=== PATIENT | female | born 1990 | race Caucasian/White ===

== ENCOUNTER 2018-06-13 18:32 | Emergency (ER) | payer BC, OTHER ==
--- NOTE | 2018-06-13 18:44 | PDOC ---
Rapid Medical Evaluation Chief Complaint: Injury Time Seen by Provider: 06/13/18 18:42 Medical Evaluation: 06/13/18 18:43 I performed a brief in person evaluation. CC: right ankle pain HPI: Pt is a 27 YO female with a hx of right ankle pain x 1 day. Pain 9/. PE: Skin: Clear Lungs: Clear Heart: RRR MS: Moves all extremities without difficulty Neuro: Alert Psych: Appropriate affect Right ankle xray ordered. Pt will go to [facility] for further evaluation. Discharge Disposition - Diagnosis Ankle sprain Qualifiers: Encounter type: initial encounter Involved ligament of ankle: unspecified ligament Laterality: right Qualified Code(s): S93.401A - Sprain of unspecified ligament of right ankle, initial encounter - Referrals - Patient Instructions - Post Discharge Activity
[2018-06-13 18:46] VITALS: BP 128/73; PULSE 86; TEMP 98.2; BMI 27.4
--- NOTE | 2018-06-13 20:11 | PDOC ---
History of Present Illness - General Chief Complaint: Injury Stated Complaint: ANKLE AND NECK INJURY Time Seen by Provider: 06/13/18 18:42 - History of Present Illness Initial Comments: 06/13/18 20:06 27-year-old female presents for evaluation of right ankle and left shoulder pain after a fall today touring work. She does have a pre-existing left shoulder injury. Past History - Past Medical History Allergies/Adverse Reactions: Allergies Allergy/AdvReac Type Severity Reaction Status Date / Time No Known Allergies Allergy Verified 06/13/18 18:46 Home Medications: Ambulatory Orders Cyclobenzaprine HCl [Flexeril 10 mg] 10 mg PO HS PRN #10 tablet 06/13/18 COPD: No Other medical history: gall stones - Immunization History Immunization Up to Date: No - Suicide/Smoking/Psychosocial Hx Smoking History: Never smoked Have you smoked in the past 12 months: No Information on smoking cessation initiated: No Hx Alcohol Use: No Drug/Substance Use Hx: No Review of Systems - Review of Systems Musculoskeletal: Yes: Joint Pain *Physical Exam - Vital Signs Last Vital Signs Temp Pulse Resp BP Pulse Ox 98.2 F 86 18 128/73 100 06/13/18 18:44 06/13/18 18:44 06/13/18 18:44 06/13/18 18:44 06/13/18 18:44 - Physical Exam Comments: 06/13/18 20:07 Left shoulder skin color and temperature are normal range of motion is full with pain at terminal abduction and external rotation. She has 5 out of 5 strength in bilateral upper extremities without gross sensorimotor deficits mildly positive Spurling maneuver on the left negative on the right. She has tenderness and spasm about left levator scapula. Right ankle skin color and temperature are normal. Range of motion is full and nonpainful. There is no tenderness about the knee proximal fibula or along its distal coarse. No tenderness about the medial or lateral malleolus base of the fifth metatarsal or navicular. Mild tenderness over the ATFL. No evidence of instability. She has no gross sensorimotor deficits. She is neurovascularly intact. Moderate Sedation - Procedure Monitoring Vital Signs: Procedure Monitoring Vital Signs Temperature 98.2 F 06/13/18 18:44 Pulse Rate 86 06/13/18 18:44 Respiratory Rate 18 06/13/18 18:44 Blood Pressure 128/73 06/13/18 18:44 O2 Sat by Pulse Oximetry (%) 100 06/13/18 18:44 Medical Decision Making - Medical Decision Making 06/13/18 20:10 States no chance of . I will treat her cervical radiculopathy with Flexeril. She is also on oral control. No steroids for her. She may take Tylenol for pain. 06/13/18 20:10 pt states no chance of flexeril given *DC/Admit/Observation/Transfer Diagnosis at time of Disposition: Cervical strain, Cervical radiculopathy Ankle sprain Qualifiers: Encounter type: initial encounter Involved ligament of ankle: unspecified ligament Laterality: right Qualified Code(s): S93.401A - Sprain of unspecified ligament of right ankle, initial encounter - Discharge Dispostion Condition at time of disposition: Stable - Referrals Referrals: Arturo Hahn MD [Staff Physician] - - Patient Instructions Printed Discharge Instructions: Ankle Sprain, DI for Ankle Sprain, DI for Cervical Radiculopathy - Post Discharge Activity
== END 2018-06-13 20:21 | disposition home or self-care (01) ==
LOC: JERFT 18:32
DX: S16.1XXA Strain of muscle, fascia and tendon at neck level, initial encounter (principal); M54.12 Radiculopathy, cervical region; S93.401A Sprain of unspecified ligament of right ankle, initial encounter; W18.39XA Other fall on same level, initial encounter; Y93.89 Activity, other specified; Y92.148 Other place in prison as the place of occurrence of the external cause; Y99.0 Civilian activity done for income or pay
CPT/HCPCS: 73610-TC-RT-FY; 99281-25

== ENCOUNTER 2018-09-06 08:28 | Emergency (ER) | payer BC, OTHER ==
[2018-09-06 08:41] VITALS: BP 116/68; PULSE 65; TEMP 98.2; BMI 27.4
[2018-09-06] MEDS ORDERED: IBUPROFEN 400 MG TABLET (FP) PO ONE ×2 (09:00→09:02)
--- NOTE | 2018-09-06 09:34 | PDOC ---
History of Present Illness - General Chief Complaint: Pain, Acute Stated Complaint: LT SHOULDER PAIN Time Seen by Provider: 09/06/18 08:51 History Source: Patient Exam Limitations: No Limitations Past History - Past Medical History Allergies/Adverse Reactions: Allergies Allergy/AdvReac Type Severity Reaction Status Date / Time No Known Allergies Allergy Verified 09/06/18 08:38 Home Medications: Ambulatory Orders NK [No Known Home Medication] 09/06/18 COPD: No - Immunization History Immunization Up to Date: Yes - Suicide/Smoking/Psychosocial Hx Smoking History: Never smoked Have you smoked in the past 12 months: No Hx Alcohol Use: No Drug/Substance Use Hx: No *Physical Exam - Vital Signs Last Vital Signs Temp Pulse Resp BP Pulse Ox 98.2 F 65 16 116/68 100 09/06/18 08:38 09/06/18 08:38 09/06/18 08:38 09/06/18 08:38 09/06/18 08:38 - Physical Exam General Appearance: No: Apparent Distress Neck: positive: Supple. negative: Rigid, Rigidity, Tender lateral, Tender midline Respiratory/Chest: positive: Lungs Clear, Normal Breath Sounds. negative: Respiratory Distress Cardiovascular: positive: Regular Rhythm, Regular Rate, S1, S2. negative: Murmur Musculoskeletal: positive: Other (Pain with L shoulder abduction, unable to abduct L shoulder to 90 degrees completetly, +Hawkin's test, +Neer's test, no swelling of joint, no deformity of LUE noted, LUE neurovascularly intact) Integumentary: positive: Normal Color Neurologic: positive: Alert, Normal Mood/Affect ED Treatment Course - RADIOLOGY Radiology Studies Ordered: Category Date Time Status SHOULDER-LEFT [RAD] Stat Radiology 09/06/18 09:00 Taken - Medications Given in the ED: ED Medications Discontinued Medications Generic Name Dose Route Start Last Admin Trade Name Freq PRN Reason Stop Dose Admin Ibuprofen 800 mg 09/06/18 09:00 09/06/18 09:04 Motrin - PO 09/06/18 09:01 800 mg ONCE ONE Administration Medical Decision Making - Medical Decision Making 27 y/o F with hx of prior L rotator cuff injury presents with L shoulder injury. Was doing barbell squats yesterday (25 lbs on each end) and while putting the barbell back on rack, missed, and barbell hit along L shoulder. Denies headache, neck pain, weakness of extremities. Is currently doing PT for her L shoulder injury, but states has not helped much. Took Tylenol for pain without much relief. Has not yet seen an orthopedic L shoulder xray unremarkable Given Motrin Will refer to ortho 09/06/18 09:33 *DC/Admit/Observation/Transfer Diagnosis at time of Disposition: Shoulder injury Qualifiers: Encounter type: initial encounter Laterality: left Qualified Code(s): S49.92XA - Unspecified injury of left shoulder and upper arm, initial encounter - Discharge Dispostion Disposition: HOME Condition at time of disposition: Stable Decision to Admit order: No - Referrals Referrals: Jose Rodriguez DO [Staff Physician] - 2 Days - Patient Instructions Printed Discharge Instructions: DI for Shoulder Pain, DI for Rotator Cuff Injury Additional Instructions: Thank you for choosing [facility]. It was a pleasure taking care of you. Your left shoulder xray was normal. You may take Motrin 600 mg every 6 hours by mouth as needed for mild to moderate pain. Take Motrin with food. You were referred to orthopedics - please call for further evaluation Return to the Emergency Department if your symptoms worsen or persist or other concerning symptoms. - Post Discharge Activity Forms/Work/School Notes: Back to Work
== END 2018-09-06 10:09 | disposition home or self-care (01) ==
LOC: JERFT 08:28
DX: S49.92XA Unspecified injury of left shoulder and upper arm, initial encounter (principal); W20.8XXA Other cause of strike by thrown, projected or falling object, initial encounter; Y93.B3 Activity, free weights; Y92.39 Other specified sports and athletic area as the place of occurrence of the external cause
CPT/HCPCS: 73030-TC-LT-FY; 99281-25

== ENCOUNTER 2018-10-07 22:24 | Inpatient (IN) | payer BC, OTHER ==
[2018-10-08] MEDS ORDERED: ONDANSETRON 4 MG/2 ML VIAL IVPUSH ONE (00:41)
[2018-10-08] MEDS ORDERED: ACETAMINOPHEN 1000 MG/100 ML VIAL (NON FORMULARY) IVPB ONE (00:41)
--- NOTE | 2018-10-08 00:41 | PDOC ---
History of Present Illness - General Chief Complaint: Pain Stated Complaint: SHORT OF BREATH Time Seen by Provider: 10/08/18 00:18 - History of Present Illness Initial Comments: The pt is a 27F w/ a history of nephrolithiasis and cholelithiasis who presents for 1 day of abdominal pain. The pain is RUQ, cramping, radiates around towards her back, constant, worse post-prandially, and is associated with nausea, sore throat, and a frontal b/l WELLS. The pt has not tried anything for pain. She denies fevers/chills, SOB, diarrhea, dysuria, or change in sensation. She last felt this type of pain in 04/2018 and at that time was told she had gallstones. PCP: [facility] PSH: C/S Meds: OCP Allergies: NKDA 10/08/18 00:45 Past History - Past Medical History Allergies/Adverse Reactions: Allergies Allergy/AdvReac Type Severity Reaction Status Date / Time No Known Allergies Allergy Verified 09/06/18 08:38 Home Medications: Ambulatory Orders NK [No Known Home Medication] 09/06/18 COPD: No Disorders: Yes (renal colic) - Immunization History Immunization Up to Date: Yes - Suicide/Smoking/Psychosocial Hx Smoking History: Never smoked Have you smoked in the past 12 months: No Hx Alcohol Use: No Drug/Substance Use Hx: No Review of Systems - Review of Systems Able to Perform ROS?: Yes Comments:: GENERAL/CONSTITUTIONAL: No fever or chills. No weakness HEAD, EYES, EARS, NOSE AND THROAT: No change in vision. No ear pain or discharge. No sore throat CARDIOVASCULAR: No chest pain or shortness of breath RESPIRATORY: Denies cough, hemoptysis GASTROINTESTINAL: No diarrhea or constipation GENITOURINARY: No dysuria, frequency, or change in urination MUSCULOSKELETAL: No joint or muscle swelling or pain. No neck or back pain SKIN: No rash NEUROLOGIC: No headache, vertigo, loss of consciousness, or change in strength/ sensation ENDOCRINE: No increased thirst. No abnormal weight change HEMATOLOGIC/LYMPHATIC: No anemia, easy bleeding, or history of blood clots ALLERGIC/IMMUNOLOGIC: No hives or skin allergy 10/08/18 00:48 Is the patient limited Hungarian proficient: No *Physical Exam - Vital Signs Last Vital Signs Temp Pulse Resp BP Pulse Ox 98.3 F 81 20 114/72 100 10/07/18 22:30 10/07/18 22:30 10/07/18 22:30 10/07/18 22:30 10/07/18 22:30 - Physical Exam Comments: GENERAL: Awake, alert, and oriented to person/place/time, in no acute distress HEAD: No signs of trauma, normocephalic, atraumatic EYES: PERRLA, EOMI, sclera anicteric, conjunctiva clear ENT: Hearing grossly normal, nares patent, oropharynx clear without exudates. Moist mucosa LUNGS: No distress, speaks full sentences, clear to auscultation bilaterally HEART: Regular rate and rhythm, normal S1 and S2, no murmurs appreciated, peripheral pulses normal and equal bilaterally ABDOMEN: EXTREMITIES: Normal inspection, Normal range of motion, no edema. No clubbing or cyanosis NEUROLOGICAL: Cranial nerves II through XII grossly intact. Normal speech, no focal sensorimotor deficits SKIN: Warm, Dry 10/08/18 01:43 ED Treatment Course - LABORATORY CBC & Chemistry Diagram: 10/08/18 00:56 10/08/18 01:01 Medical Decision Making - Medical Decision Making The pt is a 27F w/ a history of nephrolithiasis and cholelithiasis who presents for evaluation of RUQ abdominal pain w/ associated nausea and headache. Ddx: symptomatic cholelithiasis v cholecystitis, nephrolithiasis, less likely pancreatitis, PUD ED Course Labs sent RUQ U/S IVF, Ofirmev, Zofran No leukocytosis No anemia No LAINA LFTs wnl Serum preg neg Tbili wnl Pending U/S Dispo pending U/S results and re-eval of pain 10/08/18 01:43 *DC/Admit/Observation/Transfer Diagnosis at time of Disposition: Abdominal pain Qualifiers: Abdominal location: right upper quadrant Qualified Code(s): R10.11 - Right upper quadrant pain Cholelithiasis Qualifiers: Cholelithiasis location: gallbladder Cholecystitis presence: without cholecystitis Biliary obstruction: with biliary obstruction Qualified Code(s): K80.21 - Calculus of gallbladder without cholecystitis with obstruction - Referrals - Patient Instructions Printed Discharge Instructions: DI for Gallstones - Post Discharge Activity
[2018-10-08 01:08] LABS: BASO % 0.5 % (0-2.0); EOS % 1.1 % (0-4.5); HEMATOCRIT 40.2 % (32.4-45.2); HEMOGLOBIN 12.9 GM/dL (10.7-15.3); MCH 28.2 pg (25.7-33.7); MCHC 32.2 g/dl (32.0-36.0); MEAN CELL VOLUME 87.5 fl (80-96); MONO % 5.9 % (3.8-10.2); NEUT % 78.5 % (42.8-82.8); PLATELET COUNT 192 K/MM3 (134-434); RBC 4.59 M/mm3 (3.60-5.2); RDW 13.1 % (11.6-15.6); WHITE BLOOD COUNT 10.7 K/mm3 (4.0-10.0)
[2018-10-08] MEDS ORDERED: ACETAMINOPHEN INJECTION 100 ML IVPB ONE (01:08)
[2018-10-08] MEDS ORDERED: ONDANSETRON 4 MG/2 ML VIAL ONE (01:08)
--- NOTE | 2018-10-08 01:11 | PDOC ---
Documentation entered by Shari Pennington SCRIBE, acting as scribe for Patricia Benítez MD. Patricia Benítez MD: This documentation has been prepared by the [facility], SCRIBE, under my direction and personally reviewed by me in its entirety. I confirm that the documentation accurately reflects all work, treatment, procedures, and medical decision making performed by me. Attending Attestation - Resident Resident Name: Mannie Eastman - ED Attending Attestation I have performed the following: I have examined & evaluated the patient, The case was reviewed & discussed with the resident, I agree w/resident's findings & plan, Exceptions are as noted - HPI HPI: 10/08/18 01:02 The patient is a 27-year-old female with a past medical history significant for nephrolithiasis and cholelithiasis presents to the emergency department with abdominal pain. The patient presents with a 1-day history of constant RUQ pain, thats crampy in quality, that radiates to the back, with an associated symptom of nausea, denies vomiting. has seen a surgeon in the past for cholecystectomy but was unable to schedule. 10/08/18 01:08 - Physicial Exam PE: 10/08/18 01:09 awake alert NAD lungs ctab no wheeze no crackles. heart rrr no mrg abd soft nt nd. ext wwp no edema. no calf tenderness. - Medical Decision Making 10/08/18 01:10 27 yo h/o gallstones, here wiht ruq pain. plan ruq us labs differential pancreatitis cholecystitis,uti renal colic, plan pain control ivf. focused ED us RUQ, indication ruq pain. gallbladder scanned in two planes. gallstones noted, two large 1 cm stones. cbd normal 3 mm anterior gallbladder wall normal <3mm. impression: cholelithiasis. 10/08/18 01:50 pt lfts normal. wbc mild elevation. overall pt feeling improved. sxs cholelithiasis. willr require surgery eval/ referral.
[2018-10-08 01:35] LABS: ALBUMIN 3.5 g/dl (3.4-5.0); ALK PHOS 54 U/L (45-117); ANION GAP 4 MMOL/L (8-16); BILIRUBIN,TOTAL 0.5 mg/dL (0.2-1); BLOOD UREA NITROGEN 12 mg/dL (7-18); CALCIUM 8.7 mg/dL (8.5-10.1); CHLORIDE 108 mmol/L (98-107); CO2 27 mmol/L (21-32); CREATININE 0.9 mg/dL (0.55-1.3); GLUCOSE,RANDOM 94 mg/dL (74-106); POTASSIUM 4.7 mmol/L (3.5-5.1); SGOT/AST 12 U/L (15-37); SGPT/ALT 23 U/L (13-61); SODIUM 139 mmol/L (136-145); TOT PROT 7.2 g/dl (6.4-8.2)
[2018-10-08] MEDS ORDERED: SODIUM CHLORIDE 0.9% 500 ML INFUS.BAG IV ONE (01:39)
--- NOTE | 2018-10-08 02:25 | PDOC ---
*Physical Exam - Vital Signs Last Vital Signs Temp Pulse Resp BP Pulse Ox 98.3 F 81 20 114/72 100 10/07/18 22:30 10/07/18 22:30 10/07/18 22:30 10/07/18 22:30 10/07/18 22:30 - Physical Exam General Appearance: Yes: Nourished, Appropriately Dressed Neck: positive: Trachea midline, Supple Gastrointestinal/Abdominal: positive: Other (RUQ guarding; (+) Alamo's sign) ED Treatment Course - LABORATORY CBC & Chemistry Diagram: 10/08/18 00:56 10/08/18 01:01 - ADDITIONAL ORDERS Additional order review: Laboratory Results 10/08/18 10/08/18 01:01 01:01 Sodium 139 Potassium 4.7 Chloride 108 H Carbon Dioxide 27 Anion Gap 4 L BUN 12 Creatinine 0.9 Creat Clearance w eGFR 75.11 Random Glucose 94 Calcium 8.7 Total Bilirubin 0.5 AST 12 L ALT 23 Alkaline Phosphatase 54 Total Protein 7.2 Albumin 3.5 Serum , Qual Negative 10/08/18 00:56 RBC 4.59 MCV 87.5 MCHC 32.2 RDW 13.1 MPV 10.0 Neutrophils % 78.5 Lymphocytes % 14.0 Monocytes % 5.9 Eosinophils % 1.1 Basophils % 0.5 Medical Decision Making - Medical Decision Making 10/08/18 02:24 Patient signed out by Dr. Esquivel (Resident) under the care of Dr. Benítez ( Attending) @ [id number] 27 year old female with cramping RUQ abdominal pain. VSS Bedside U/S shows cholelithiasis. H/o symptomatic cholelithiasis with surgical evaluation but no scheduled cholecystectomy. LFT's normal. S/p Tylenol, Zofran, IV hydration. Patient @ CT 10/08/18 02:30 Patient reasessed @ bedside - continues to have RLQ TTP 10/08/18 05:41 CTAP negative for cholecystitis however patient continues to have mild guarding on PE. Will admit for symptomatic cholelithiasis with surgical evaluation in the a.m. Patient counseled on plan of care. Amenable to admission Morphine for pain control 10/08/18 06:06 Case d/w Dr. Glass (Hospitalist) will admit patient for surgical consult. *DC/Admit/Observation/Transfer Diagnosis at time of Disposition: Abdominal pain Qualifiers: Abdominal location: right upper quadrant Qualified Code(s): R10.11 - Right upper quadrant pain Cholelithiasis Qualifiers: Cholelithiasis location: gallbladder Cholecystitis presence: without cholecystitis Biliary obstruction: with biliary obstruction Qualified Code(s): K80.21 - Calculus of gallbladder without cholecystitis with obstruction - Referrals - Patient Instructions Printed Discharge Instructions: DI for Gallstones - Post Discharge Activity
[2018-10-08 03:15] LABS: INR 0.96 (0.83-1.09); PROTHROMBIN TIME (PATIENT) 11.3 SEC (9.7-13.0)
[2018-10-08 03:17] LABS: ACTIVATED PTT 28.4 SECONDS (25.2-36.5)
[2018-10-08] MEDS ORDERED: morphine CARPU-JECT 2 MG/1 ML DISP.SYRIN IVPUSH ONE (04:16)
[2018-10-08] MEDS ORDERED: morphine SULFATE 4 MG/ML VIAL ONE (05:10)
[2018-10-08] MEDS ORDERED: KETOROLAC TROMETHAMINE 15 MG/ML VIAL IVPUSH PRN (06:33)
[2018-10-08] MEDS ORDERED: morphine SULFATE 4 MG/ML VIAL IVPUSH PRN (06:33)
[2018-10-08] MEDS ORDERED: ONDANSETRON 4 MG/2 ML VIAL IVPUSH PRN (06:33)
[2018-10-08] MEDS ORDERED: ACETAMINOPHEN 325 MG TABLET (FP) PO PRN (06:33)
--- NOTE | 2018-10-08 06:38 | HP ---
CHIEF COMPLAINT: PCP: HISTORY OF PRESENT ILLNESS: Seen and examined; patient is a 27 y/o female with a PMH of OCP use presenting to the ER with a CC of crampy moderate to severe abdominal pain; she has acute abdominal pain secondary to gallstones visualized on US. She has known gallstones with biliary colic since at least april of last year; she was seen at [facility] and told she needed GB out but was lost to followup. Pain is worse with food and better with rest but never completely relieved. She is afebrile and hemodynamically stable. She has some nausea but has not yet vomited. Denies diarrhea. Prelim US shows 5mm robb with no pericholecystic fluid and normal common bile duct. Discussed the case with Dr. Robles who will see the patient. Will hold off on HIDA until sgy assesses and give fluids, working to control her pain and nausea. As no real white count, persay, and no fever will hold off on abx for now. PAST MEDICAL HISTORY: Reviewed PAST SURGICAL HISTORY: No recent procedures noted Social History: Social drinker without s/s abuse, no tobacco/ilicits. Employed as housing officer Family History: Asked and noncontributory Allergies No Known Allergies Allergy (Verified 09/06/18 08:38) HOME MEDICATIONS: Home Medications Medication Instructions Recorded Norethindrone AC-Eth Estradiol 1 each PO DAILY 10/08/18 [] REVIEW OF SYSTEMS 10 sys ROS done and negative aside from hPI PHYSICAL EXAMINATION Vital Signs - 24 hr 10/07/18 22:30 Temperature 98.3 F Pulse Rate 81 Respiratory 20 Rate Blood Pressure 114/72 O2 Sat by Pulse 100 Oximetry (%) GENERAL: Awake, alert, and fully oriented, in no acute distress. HEAD: Normal with no signs of trauma. EYES: Pupils equal, round and reactive to light, extraocular movements intact EARS, NOSE, THROAT: Ears normal, nares patent, oropharynx clear without exudates. Moist mucous membranes. NECK: Normal range of motion, supple without lymphadenopathy, JVD, or masses. LUNGS: Breath sounds equal, clear to auscultation bilaterally. No wheezes, and no crackles. No accessory muscle use. HEART: Regular rate and rhythm, normal S1 and S2 without murmur, rub or gallop. ABDOMEN: Soft, mildly tender with equivicol miller's, not distended, normoactive bowel sounds MUSCULOSKELETAL: Normal range of motion at all joints. No bony deformities or tenderness. No CVA tenderness. NEUROLOGICAL: Cranial nerves II-XII intact. Normal speech. Normal gait. PSYCHIATRIC: Cooperative. Good eye contact. Appropriate mood and affect. SKIN: Warm, dry, normal turgor, no rashes or lesions noted, normal capillary refill. Laboratory Results - last 24 hr 10/08/18 10/08/18 10/08/18 00:56 01:01 01:01 WBC 10.7 H RBC 4.59 Hgb 12.9 Hct 40.2 MCV 87.5 MCH 28.2 MCHC 32.2 RDW 13.1 Plt Count 192 MPV 10.0 Absolute Neuts (auto) 8.4 H Neutrophils % 78.5 Lymphocytes % 14.0 Monocytes % 5.9 Eosinophils % 1.1 Basophils % 0.5 Nucleated RBC % 0 PT with INR 11.30 INR 0.96 PTT (Actin FS) 28.4 Sodium Potassium Chloride Carbon Dioxide Anion Gap BUN Creatinine Creat Clearance w eGFR Random Glucose Calcium Total Bilirubin AST ALT Alkaline Phosphatase Total Protein Albumin Serum , Qual Negative Blood Type Antibody Screen 10/08/18 10/08/18 01:01 01:01 WBC RBC Hgb Hct MCV MCH MCHC RDW Plt Count MPV Absolute Neuts (auto) Neutrophils % Lymphocytes % Monocytes % Eosinophils % Basophils % Nucleated RBC % PT with INR INR PTT (Actin FS) Sodium 139 Potassium 4.7 Chloride 108 H Carbon Dioxide 27 Anion Gap 4 L BUN 12 Creatinine 0.9 Creat Clearance w eGFR 75.11 Random Glucose 94 Calcium 8.7 Total Bilirubin 0.5 AST 12 L ALT 23 Alkaline Phosphatase 54 Total Protein 7.2 Albumin 3.5 Serum , Qual Blood Type A NEGATIVE Antibody Screen Negative ASSESSMENT/PLAN: Patient with hx biliary colic diagnosed at [facility] presents with typical biliary-type pain and gallstones with a 5mm GB wall on prelim US; case was discussed with Dr. Robles. 1) Biliary Colic, symptomatic cholelithiasis -She has a history of gallstones diagnosed at [facility] with similar pain; is amiable to discuss with sgy. -Followup surgical recommendations; appreciate expert opinion. -LR@100; PRN APAP/Toradol and can use MSO4 for breakthrough pain -Considering HIDA; if she does go for it will hold the morphine. Will need to discuss with sgy -Nausea control; followup QTc -No fever, white count, no pericholecystic fluid; in light of this will hold off on abx but will cover if clinically presents. -Type and screen, coags ordered. 2) Overweight (BMI 27) -Back Sizer prior to DC DVT px: Early ambulation; SCDs postop Full Code
[2018-10-08] MEDS ORDERED: LACTATED RINGERS SOLUTION 1,000 ML/1,000 ML INFUS.BAG IV SCH (06:45)
[2018-10-08 08:01] LABS: BASO % 0.7 % (0-2.0); EOS % 1.2 % (0-4.5); HEMATOCRIT 36.1 % (32.4-45.2); HEMOGLOBIN 11.8 GM/dL (10.7-15.3); LYMPH % 25.7 % (8-40); MCH 28.7 pg (25.7-33.7); MCHC 32.8 g/dl (32.0-36.0); MEAN CELL VOLUME 87.4 fl (80-96); MEAN PLT VOLUME 10.2 fl (7.5-11.1); MONO % 6.2 % (3.8-10.2); NEUT % 66.2 % (42.8-82.8); PLATELET COUNT 180 K/MM3 (134-434); RBC 4.12 M/mm3 (3.60-5.2); RDW 13.2 % (11.6-15.6); WHITE BLOOD COUNT 9.1 K/mm3 (4.0-10.0)
[2018-10-08 08:31] LABS: ANION GAP 5 MMOL/L (8-16); BLOOD UREA NITROGEN 9 mg/dL (7-18); CALCIUM 7.5 mg/dL (8.5-10.1); CHLORIDE 112 mmol/L (98-107); CO2 26 mmol/L (21-32); CREATININE 0.8 mg/dL (0.55-1.3); GLUCOSE,RANDOM 83 mg/dL (74-106); POTASSIUM 4.6 mmol/L (3.5-5.1); SODIUM 143 mmol/L (136-145)
[2018-10-08 09:34] LABS: URINE APPEARANCE CLEAR; URINE BILIRUBIN NEGATIVE (NEGATIVE); URINE COLOR YELLOW; URINE GLUCOSE (UA) NEGATIVE (NEGATIVE); URINE KETONE NEGATIVE (NEGATIVE); URINE LEUK ESTERASE NEGATIVE (NEGATIVE); URINE NITRITE NEGATIVE (NEGATIVE); URINE PROTEIN NEGATIVE (NEGATIVE); URINE UROBILINOGEN 0.2 mg/dL (0.2-1.0)
[2018-10-08] MEDS ORDERED: DEXTROSE 5%-NORMAL SALINE 1,000 ML IV SCH (10:00)
--- NOTE | 2018-10-08 10:04 | PN ---
Progress Note (short form) - Note Progress Note: Subjective: no fever or chills. Abd pain in RUQ is still there since 8 pm. no diarrhea. has nausea, but no vomiting Objective: Vital Signs: Last Vital Signs Temp Pulse Resp BP Pulse Ox 98.4 F 61 16 121/65 99 10/08/18 09:00 10/08/18 09:00 10/08/18 09:00 10/08/18 09:00 10/08/18 09:00 Laboratory Results - last 24 hr 10/08/18 10/08/18 10/08/18 00:56 01:01 01:01 WBC 10.7 H RBC 4.59 Hgb 12.9 Hct 40.2 MCV 87.5 MCH 28.2 MCHC 32.2 RDW 13.1 Plt Count 192 MPV 10.0 Absolute Neuts (auto) 8.4 H Neutrophils % 78.5 Lymphocytes % 14.0 Monocytes % 5.9 Eosinophils % 1.1 Basophils % 0.5 Nucleated RBC % 0 PT with INR 11.30 INR 0.96 PTT (Actin FS) 28.4 Sodium Potassium Chloride Carbon Dioxide Anion Gap BUN Creatinine Creat Clearance w eGFR Random Glucose Calcium Total Bilirubin AST ALT Alkaline Phosphatase Total Protein Albumin Lipase Serum , Qual Negative Urine Color Urine Appearance Urine pH Ur Specific [place] Urine Protein Urine Glucose (UA) Urine Ketones Urine Blood Urine Nitrite Urine Bilirubin Urine Urobilinogen Ur Leukocyte Esterase Blood Type Antibody Screen 10/08/18 10/08/18 10/08/18 01:01 01:01 06:08 WBC RBC Hgb Hct MCV MCH MCHC RDW Plt Count MPV Absolute Neuts (auto) Neutrophils % Lymphocytes % Monocytes % Eosinophils % Basophils % Nucleated RBC % PT with INR INR PTT (Actin FS) Sodium 139 Potassium 4.7 Chloride 108 H Carbon Dioxide 27 Anion Gap 4 L BUN 12 Creatinine 0.9 Creat Clearance w eGFR 75.11 Random Glucose 94 Calcium 8.7 Total Bilirubin 0.5 AST 12 L ALT 23 Alkaline Phosphatase 54 Total Protein 7.2 Albumin 3.5 Lipase 116 Serum , Qual Urine Color Urine Appearance Urine pH Ur Specific [place] Urine Protein Urine Glucose (UA) Urine Ketones Urine Blood Urine Nitrite Urine Bilirubin Urine Urobilinogen Ur Leukocyte Esterase Blood Type A NEGATIVE Antibody Screen Negative 10/08/18 10/08/18 10/08/18 07:39 07:39 09:00 WBC 9.1 RBC 4.12 Hgb 11.8 Hct 36.1 MCV 87.4 MCH 28.7 MCHC 32.8 RDW 13.2 Plt Count 180 MPV 10.2 Absolute Neuts (auto) 6.0 Neutrophils % 66.2 Lymphocytes % 25.7 D Monocytes % 6.2 Eosinophils % 1.2 Basophils % 0.7 Nucleated RBC % 0 PT with INR INR PTT (Actin FS) Sodium 143 Potassium 4.6 Chloride 112 H Carbon Dioxide 26 Anion Gap 5 L BUN 9 Creatinine 0.8 Creat Clearance w eGFR 86.04 Random Glucose 83 Calcium 7.5 L Total Bilirubin AST ALT Alkaline Phosphatase Total Protein Albumin Lipase Serum , Qual Urine Color Yellow Urine Appearance Clear Urine pH 7.0 Ur Specific [place] 1.013 Urine Protein Negative Urine Glucose (UA) Negative Urine Ketones Negative Urine Blood Negative Urine Nitrite Negative Urine Bilirubin Negative Urine Urobilinogen 0.2 Ur Leukocyte Esterase Negative Blood Type Antibody Screen Physical Exam: NAD , AAOx3. pleasant CV: RRR, 3/6 SM mainly heard at apex. Lungs: CTAB Abd: soft, ND, TTP in RUQ, with + Alamo's and rebound tenderness Ext : no edema or erythema Imaging: US reviewed. Assessment/Plan: 27 y/o lady with h/o preeclampsia, heart murmur, and known gall stones and biliary colic who presented with RUQ abd pain. 1- RUQ pain. biliarry colic and possible acute cholecystitis ( persistent pain, + Alamo's, thickening of gall bladder wall on some images) - start CTX and flagyl - change IVF to NS+ D5 - NPO - pain control - Surgery c/s pending. - will get EKG or QTC since on zofran 2- heart murmur : known . had an echo before ,per report neg for valvular pathology 3- hold off chemical DVT px now pending possible sx . SCDS Visit type - Emergency Visit Emergency Visit: Yes ED Registration Date: 10/08/18 Care time: The patient presented to the Emergency Department on the above date and was hospitalized for further evaluation of their emergent condition. - New Patient This patient is new to me today: Yes Date on this admission: 10/08/18 - Critical Care Critical Care patient: No
[2018-10-08 10:07] LABS: ALK PHOS 47 U/L (45-117); BILIRUBIN,TOTAL 0.5 mg/dL (0.2-1); SGOT/AST 12 U/L (15-37); SGPT/ALT 20 U/L (13-61); TOT PROT 6.2 g/dl (6.4-8.2)
[2018-10-08] MEDS ORDERED: cefTRIAXone SODIUM 1 GM VIAL ONE (11:08)
[2018-10-08] MEDS ORDERED: DEXTROSE 5%-WATER - 50 ML IVPB ONE (11:08)
[2018-10-08] MEDS: CEFTRIAXONE 1 GM in DEXTROSE 5%-WATER - 50 ML IVPB SCH (11:18)
[2018-10-08 11:52] VITALS: BMI 27.8
--- NOTE | 2018-10-08 12:41 | CONSULT ---
Consult Consult Specialty:: General Surgery Referred by:: Nithin Glass Reason for Consultation:: symptomatic cholelithiasis - History of Present Illness Chief Complaint: RUQ pain, nausea, WELLS History of Present Illness: 27yo F with h/o nephrolithiasis, innocent heart murmur, preeclampsia with first , c/section x2, cystoscopy with lithotripsy and cholelithiasis diagnosed 04/23, presented to ER last night with increasingly recurrent and worsening episodes of biliary colic. She was referred by [facility] in April to a surgeon, with whom she has been trying to arrange a date for lap oliverio with, when she can take vacation from work, but has not been able to do so yet. She has been following a low-fat diet, but having intermittent pain on a more frequent basis, and has decreased her po intake over the last few weeks because of the pain. She has some nausea but no vomiting with the pain, no fever or chills, and reports mild chronic constipation. Last BM was small pieces , hard to get out, day before yesterday. Yesterday evening, she was woken up by the pain just before going to work, and it was bad enough to call in and come to ER instead. She has also had a headache since yesterday, and for the last 2- 3 days a sore throat and stuffy nose, which she thinks may be related to developing environmental allergies. In the ER, her wbc was 10.7, LFTs and lipase normal, and US showed multiple gallstones measuring up to 1.6cm, with possible areas of wall thickening and no pericholecystic fluid, normal cbd. Surgery was asked to assess. She is seen and examined in bed. She has been NPO on IVF, and Ceftriaxone and Flagyl were started this morning. She reports still having RUQ pain, but is very hungry. She gave the above history. Only home med is OCP, and she is due for menses within days. She does not smoke cigarettes but uses a vaporizer daily , used to smoke hookah. - History Source History Provided By: Patient Limitations to Obtaining History: No Limitations - Past Medical History Cardio/Vascular: Yes: Murmur Hepatobiliary: Yes: Cholelithiasis Renal/: Yes: Renal Calculi ...LMP: 09/09/18 ...: No ...Para: 2 - Past Surgical History Past Surgical History: Yes: (x2) Additional Surgical History: cystoscopy with lithotripsy for R-sided stone - Alcohol/Substance Use Hx Alcohol Use: Yes (occasional) History of Substance Use: reports: None - Smoking History Smoking history: Current every day smoker (hookah/vape only - no cigarettes) Have you smoked in the past 12 months: Yes Aproximately how many cigarettes per day: 0 - Social History Usual Living Arrangement: Alone ADL: Independent Occupation: human resources officer Home Medications - Allergies Allergies/Adverse Reactions: Allergies Allergy/AdvReac Type Severity Reaction Status Date / Time No Known Allergies Allergy Verified 09/06/18 08:38 - Home Medications Home Medications: Ambulatory Orders Norethindrone AC-Eth Estradiol [] 1 each PO DAILY 10/08/18 Family Disease History - Family Disease History Family Disease History: Diabetes: Father (type 2), Other: Mother (hypothyroid) Review of Systems - Review of Systems Constitutional: reports: Loss of Appetite (eating less for few weeks because of increased episodes of pain). denies: Chills, Fever Eyes: reports: Other (glasses for distance). denies: Recent Change in Vision HENT: reports: Nasal Congestion (/runny), Throat Pain (sore throat x few days). denies: Difficult Swallowing Neck: reports: Swollen Glands (left neck). denies: Pain on Movement, Stiffness Cardiovascular: denies: Chest Pain, Palpitations Respiratory: denies: Cough, SOB Gastrointestinal: reports: Abdominal Pain (with hpi), Constipation (hard to get out, not every day, small pieces last), Nausea (with hpi). denies: Diarrhea, Vomiting Genitourinary: denies: Burning, Dysuria Musculoskeletal: denies: Back Pain, Joint Pain, Muscle Pain Integumentary: denies: Change in Color, Rash Neurological: reports: Dizziness (just this morning), Headache (with hpi) Psychiatric: denies: Anxiety, Depression Physical Exam Vital Signs: Vital Signs Temperature 98.2 F 10/08/18 11:49 Pulse Rate 56 L 10/08/18 11:49 Respiratory Rate 18 10/08/18 11:49 Blood Pressure 113/58 L 10/08/18 11:49 O2 Sat by Pulse Oximetry (%) 100 10/08/18 11:55 Constitutional: Yes: Well Nourished, No Distress, Calm Eyes: Yes: Conjunctiva Clear, EOM Intact HENT: Yes: Atraumatic, Normocephalic Neck: Yes: Supple, Trachea Midline Cardiovascular: Yes: Regular Rate and Rhythm, Murmur (systolic) Respiratory: Yes: Regular, CTA Bilaterally Gastrointestinal: Yes: Normal Bowel Sounds, Soft, Hernia (small umbilical defect palpable, no content), Tenderness (RUQ + Alamo's, less epigastric/ referred to RUQ). No: Distention, Tenderness, Rebound (no westley/guard) ...Rectal Exam: Yes: Deferred Renal/: Yes: CVA Tenderness - Right. No: CVA Tenderness - Left Musculoskeletal: No: Joint Stiffness, Joint Swelling Extremities: No: Cool, Cyanosis Edema: No Peripheral Pulses WNL: Yes Integumentary: Yes: Body Piercing (supraumbilical). No: Jaundice, Rash Neurological: Yes: Alert, Oriented Psychiatric: Yes: Alert, Oriented Labs: CBC, BMP 10/08/18 07:39 10/08/18 07:39 CMP Sodium 143 mmol/L (136-145) 10/08/18 07:39 Potassium 4.6 mmol/L (3.5-5.1) 10/08/18 07:39 Chloride 112 mmol/L (98-107) H 10/08/18 07:39 Carbon Dioxide 26 mmol/L (21-32) 10/08/18 07:39 Anion Gap 5 MMOL/L (8-16) L 10/08/18 07:39 BUN 9 mg/dL (7-18) 10/08/18 07:39 Creatinine 0.8 mg/dL (0.55-1.3) 10/08/18 07:39 Creat Clearance w eGFR 86.04 (>60) 10/08/18 07:39 Random Glucose 83 mg/dL (74-106) 10/08/18 07:39 Calcium 7.5 mg/dL (8.5-10.1) L 10/08/18 07:39 Total Bilirubin 0.5 mg/dL (0.2-1) 10/08/18 07:39 AST 12 U/L (15-37) L 10/08/18 07:39 ALT 20 U/L (13-61) 10/08/18 07:39 Alkaline Phosphatase 47 U/L (45-117) 10/08/18 07:39 Total Protein 6.2 g/dl (6.4-8.2) L 10/08/18 07:39 Albumin 3.0 g/dl (3.4-5.0) L 10/08/18 07:39 Lipase 116 U/L (73-393) 10/08/18 06:08 TSH 0.78 uIU/ml (0.358-3.74) 10/08/18 07:39 Serum , Qual Negative 10/08/18 01:01 INR, PTT INR 0.96 (0.83-1.09) 10/08/18 01:01 Urine Test Results Urine Color Yellow 10/08/18 09:00 Urine Appearance Clear 10/08/18 09:00 Urine pH 7.0 (5.0-8.0) 10/08/18 09:00 Ur Specific [place] 1.013 (1.010-1.035) 10/08/18 09:00 Urine Protein Negative (NEGATIVE) 10/08/18 09:00 Urine Glucose (UA) Negative (NEGATIVE) 10/08/18 09:00 Urine Ketones Negative (NEGATIVE) 10/08/18 09:00 Urine Blood Negative (NEGATIVE) 10/08/18 09:00 Urine Nitrite Negative (NEGATIVE) 10/08/18 09:00 Urine Bilirubin Negative (NEGATIVE) 10/08/18 09:00 Ur Leukocyte Esterase Negative (NEGATIVE) 10/08/18 09:00 wbc down from just over 10 last night Imaging - Results Ultrasound: Report Reviewed, Image Reviewed (images reviewed - gallbladder distended with multiple stones, at least 2 or 3 larger than 1cm, no pericholecystic fluid, normal cbd, equivocal wall thickening) Problem List - Problems (1) Calculus of gallbladder with chronic cholecystitis without obstruction Assessment/Plan: admitted to medicine NPO/IVF until postop - still very tender pain meds prn, nonnarcotics first line GI/DVT prophylaxis periop antibiotics Discussed with patient risks, benefits and alternatives of laparoscopic possible open cholycestectomy with possible umbilical hernia repair, including but not limited to bleeding, infection, injury to adjacent structures, bile leak or ductal injury, intraabdominal abscess, incisional or recurrent hernia, need for further procedures, ; alternatives include delayed or no surgery - risks of this include recurrence of biliary colic, cholecystitis, pancreatitis , cholangitis and their sequelae. Patient desires to proceed with operation - will take to OR tomorrow when room available for above. Informed consent signed for same. will discuss with Dr. Yates Code(s): K80.10 - CALCULUS OF GALLBLADDER W CHRONIC CHOLECYST W/O OBSTRUCTION (2) Umbilical hernia without mention of obstruction or gangrene Code(s): K42.9 - UMBILICAL HERNIA WITHOUT OBSTRUCTION OR GANGRENE Qualifiers: Obstruction and gangrene presence: without obstruction or gangrene Qualified Code(s): K42.9 - Umbilical hernia without obstruction or gangrene (3) RUQ pain Code(s): R10.11 - RIGHT UPPER QUADRANT PAIN (4) Nausea alone Code(s): R11.0 - NAUSEA (5) Innocent heart murmur Code(s): R01.0 - BENIGN AND INNOCENT CARDIAC MURMURS
--- NOTE | 2018-10-08 15:01 | EKG ---
Test Reason : Blood Pressure : / mmHG Vent. Rate : 051 BPM Atrial Rate : 051 BPM P-R Int : 144 ms QRS Dur : 076 ms QT Int : 430 ms P-R-T Axes : 063 003 013 degrees QTc Int : 396 ms SINUS BRADYCARDIA OTHERWISE NORMAL ECG NO PREVIOUS ECGS AVAILABLE Confirmed by CHICO SWANSON, RUDI ([id number]) on 10/08/2018 3:01:35 PM Referred By: Confirmed By:RUDI GOLDEN MD
[2018-10-08] MEDS: DEXTROSE 5%-NORMAL SALINE 1,000 ML IV SCH (16:24)
[2018-10-09] MEDS: DEXTROSE 5%-NORMAL SALINE 1,000 ML IV SCH (02:42)
[2018-10-09 07:57] LABS: BASO % 0.4 % (0-2.0); EOS % 1.9 % (0-4.5); HEMATOCRIT 37.3 % (32.4-45.2); HEMOGLOBIN 12.1 GM/dL (10.7-15.3); LYMPH % 25.2 % (8-40); MCH 28.5 pg (25.7-33.7); MCHC 32.4 g/dl (32.0-36.0); MEAN CELL VOLUME 87.8 fl (80-96); MEAN PLT VOLUME 10.9 fl (7.5-11.1); MONO % 7.2 % (3.8-10.2); NEUT % 65.3 % (42.8-82.8); PLATELET COUNT 179 K/MM3 (134-434); RBC 4.25 M/mm3 (3.60-5.2); WHITE BLOOD COUNT 6.3 K/mm3 (4.0-10.0)
[2018-10-09 08:23] LABS: ALBUMIN 3.2 g/dl (3.4-5.0); ALK PHOS 47 U/L (45-117); ANION GAP 9 MMOL/L (8-16); BILIRUBIN,TOTAL 0.4 mg/dL (0.2-1); BLOOD UREA NITROGEN 9 mg/dL (7-18); CALCIUM 8.4 mg/dL (8.5-10.1); CHLORIDE 107 mmol/L (98-107); CO2 26 mmol/L (21-32); CREATININE 0.9 mg/dL (0.55-1.3); GLUCOSE,RANDOM 92 mg/dL (74-106); POTASSIUM 4.3 mmol/L (3.5-5.1); SGOT/AST 14 U/L (15-37); SGPT/ALT 21 U/L (13-61); SODIUM 142 mmol/L (136-145); TOT PROT 6.5 g/dl (6.4-8.2)
[2018-10-09] MEDS ORDERED: DEXTROSE 5%-WATER - 50 ML IVPB ONE (09:38)
[2018-10-09] MEDS ORDERED: cefTRIAXone SODIUM 1 GM VIAL ONE (09:38)
[2018-10-09] MEDS: CEFTRIAXONE 1 GM in DEXTROSE 5%-WATER - 50 ML IVPB SCH (10:48)
--- NOTE | 2018-10-09 12:27 | PN ---
Physical Exam: SUBJECTIVE: Patient seen and examined this AM. She is complaining of some RUQ pain, though improved from admission. Denies any n/v/d at this time. For OR today OBJECTIVE: Vital Signs Period Temp Pulse Resp BP Sys/Lowry Pulse Ox Last 24 Hr 97.5 F-98.6 F 53-64 18-18 101-120/55-60 100 GEN: no acute distress HEENT: Normocephalic, atraumatic, no pharyngeal erythema or exudate HEART: regular rate and rhythm, systolic murmur LUNGS: CTA b/l ABDOMEN: Soft, normoactive bowel sounds, Tender in RUQ, miller's positive EXTREMITIES: No peripheral edema, small 1 cm diameter erythematous area on left thigh Laboratory Results - last 24 hr 10/09/18 10/09/18 06:30 06:30 WBC 6.3 RBC 4.25 Hgb 12.1 Hct 37.3 MCV 87.8 MCH 28.5 MCHC 32.4 RDW 13.0 Plt Count 179 MPV 10.9 Absolute Neuts (auto) 4.1 Neutrophils % 65.3 Lymphocytes % 25.2 Monocytes % 7.2 Eosinophils % 1.9 Basophils % 0.4 Nucleated RBC % 0 Sodium 142 Potassium 4.3 Chloride 107 Carbon Dioxide 26 Anion Gap 9 BUN 9 Creatinine 0.9 Creat Clearance w eGFR 75.11 Random Glucose 92 Calcium 8.4 L Total Bilirubin 0.4 AST 14 L ALT 21 Alkaline Phosphatase 47 Total Protein 6.5 Albumin 3.2 L Active Medications Generic Name Dose Route Start Last Admin Trade Name Freq PRN Reason Stop Dose Admin Acetaminophen 650 mg 10/08/18 06:33 Tylenol - PO Q4H PRN PAIN Ceftriaxone Sodium 1 gm/ 50 mls @ 100 mls/hr 10/08/18 10:00 10/09/18 10:48 Dextrose IVPB 100 mls/hr Q24H TUSHAR Administration Metronidazole 500 mg in 100 mls @ 100 mls/hr 10/08/18 10:15 10/09/18 09:42 Flagyl 500mg Premixed Ivpb - IVPB 100 mls/hr Q8H-IV TUSHAR Administration Dextrose/Sodium Chloride 1,000 mls @ 83 mls/hr 10/08/18 16:05 10/09/18 02:42 D5-Ns - IV 83 mls/hr ASDIR TUSHAR Administration Ketorolac Tromethamine 15 mg 10/08/18 06:33 10/08/18 14:14 Toradol Injection - IVPUSH 10/13/18 06:32 15 mg Q6H PRN Administration PAIN LEVEL 4 - 6 Morphine Sulfate 2 mg 10/08/18 06:33 Morphine Sulfate IVPUSH Q4H PRN PAIN LEVEL 7 - 10 Ondansetron HCl 4 mg 10/08/18 06:33 Zofran Injection IVPUSH Q6H PRN NAUSEA ASSESSMENT/PLAN: 27 yo female with hx Preeclampsia, known heart murmur, gallstones and biliary colic admitted for RUQ pain RUQ pain, cholelithiasis, possible cholecystitis -RUQ US with gallstones and mild wall thickening -Surgery consult appreciated -Lap oliverio today, uncomplicated as per surgery -will reassess post-op -Pain control as per surgery -Zofran for nausea/vomiting, QTc okay FEN -D5 NS @ 83 cc/hr -monitor and replete -held for OR, advance as per surgery DVT Prophylaxis -held for OR Dispo Can likely d/c in AM if course uncomplicated overnight Visit type - Emergency Visit Emergency Visit: Yes ED Registration Date: 10/08/18 Care time: The patient presented to the Emergency Department on the above date and was hospitalized for further evaluation of their emergent condition. - New Patient This patient is new to me today: Yes Date on this admission: 10/09/18 - Critical Care Critical Care patient: No
[2018-10-09] MEDS ORDERED: PROPOFOL 20 ML ONE (12:48)
[2018-10-09] MEDS ORDERED: fentaNYL CITRATE 250 MCG/5 ML VIAL ONE (12:48)
[2018-10-09] MEDS ORDERED: MIDAZOLAM HCL 2 MG/2 ML SINGLE DOSE VIAL ONE (12:49)
[2018-10-09] MEDS ORDERED: ROCURONIUM BROMIDE 50 MG/5 ML VIAL ONE (12:49)
[2018-10-09] MEDS ORDERED: BUPIVACAINE HCL/PF 0.5% (5MG/ML) 10 ML VIAL ONE (12:49)
[2018-10-09] MEDS ORDERED: ceFAZolin SODIUM 1 GM VIAL IVPB ONE (13:35)
--- NOTE | 2018-10-09 13:55 | PN ---
Teaching Attending Note Name of Resident: Royal Daniel ATTENDING PHYSICIAN STATEMENT I saw and evaluated the patient. I reviewed the resident's note and discussed the case with the resident. I agree with the resident's findings and plan as documented. SUBJECTIVE: No fever or chills. No WELLS , abd pain is better. no hematuria , or diarrhea, or N /V. OBJECTIVE: NAD, AAOx3. pleasant CV: RRR, 3/6 SM mainly heard at apex. Lungs: CTAB Abd: soft, ND, TTP in RUQ, with + Alamo's. Ext : no edema or erythema Assessment/Plan: 27 y/o lady with h/o preeclampsia, heart murmur, and known gall stones and biliary colic who presented with RUQ abd pain. 1- RUQ pain. biliarry colic and possible acute cholecystitis - CTX and flagyl. will stop after sx if no abscess or perforation - IVF - Sx today - pain control - diet after Sx 2- Heart murmur : known . F/U as out pt 3- SCDS . start Heparin sq after sx
[2018-10-09] MEDS ORDERED: NEOSTIGMINE METHYLSULFATE 0.5 MG/ML - 10 ML MDV ONE (14:06)
[2018-10-09] MEDS ORDERED: BUPIVACAINE HCL/PF (5 MG/ML) 30 ML VIAL IJ ONE ×2 (14:10)
--- NOTE | 2018-10-09 14:50 | OP ---
Operative Note - Note: Operative Date: 10/09/18 Pre-Operative Diagnosis: chronic cholecystitis, symptomatic cholelithiasis, umbilical hernia Operation: laparoscopic cholecystectomy, primary umbilical hernia repair Findings: gap in fascia at umbilicus, just under 1cm long, preperitoneal fat only underlying - used for Sheila port, closed on way out; minimal filmy adhesion over base of gallbladder, two marble-sized stones palpable in it after removal, duct and artery clearly identified Post-Operative Diagnosis: Same as Pre-op Surgeon: Sebas Robles Rn Document Improvement: Aníbal Mansfield Anesthesiologist/ELECTRO MECHANICAL ENGINEER: Brady Bennett (basilia/Nael Elizabeth) Anesthesia: General, Local (20ml 0.5% marcaine) Specimens Removed: gallbladder to pathology Estimated Blood Loss (mls): 5 Fluid Volume Replaced (mls): 1,000 (crystalloid) Operative Report Dictated: Yes
[2018-10-09] MEDS ORDERED: PROMETHAZINE HCL 25 MG/1 ML VIAL ONE (15:03)
[2018-10-09] MEDS ORDERED: PROMETHAZINE HCL 25 MG/1 ML VIAL IVPUSH ONE ×2 (15:20→16:41)
[2018-10-09] MEDS ORDERED: LACTATED RINGERS SOLUTION 1,000 ML IV SCH ×2 (15:45→17:39)
[2018-10-09] MEDS ORDERED: ONDANSETRON 4 MG/2 ML VIAL IVPUSH PRN (16:41)
[2018-10-09] MEDS ORDERED: DEXTROSE 5%-NORMAL SALINE 1,000 ML IV SCH (16:41)
[2018-10-09] MEDS ORDERED: ACETAMINOPHEN 325 MG TABLET (FP) PO SCH (18:00)
[2018-10-09] MEDS: ACETAMINOPHEN 325 MG TABLET (FP) PO SCH (19:00)
[2018-10-09] MEDS ORDERED: IBUPROFEN 600 MG TABLET (FP) PO SCH (21:00)
[2018-10-09] MEDS ORDERED: HEPARIN NA (PORCINE) 5,000 UNITS/ML 1ML VIAL SQ SCH (22:00)
[2018-10-09] MEDS: IBUPROFEN 600 MG TABLET (FP) PO SCH (22:19)
[2018-10-09] MEDS: HEPARIN NA (PORCINE) 5,000 UNITS/ML 1ML VIAL SQ SCH (22:19)
[2018-10-10] MEDS: ACETAMINOPHEN 325 MG TABLET (FP) PO SCH ×4 (00:23→18:11)
[2018-10-10] MEDS: IBUPROFEN 600 MG TABLET (FP) PO SCH ×3 (02:21→15:05)
[2018-10-10] MEDS: HEPARIN NA (PORCINE) 5,000 UNITS/ML 1ML VIAL SQ SCH ×2 (05:28→15:08)
--- NOTE | 2018-10-10 12:33 | PN ---
Progress Note, Physician History of Present Illness: Pt s/p lap oliverio with umbilical hernia repair, seen and examined in bed. She is tolerating diet, though still with occasional mild nausea. No vomiting. States she is sore, but tylenol and ibuprofen are controlling her pain. Voiding, ambulating, passing gas, no BM yet. - Current Medication List Current Medications: Active Medications Acetaminophen (Tylenol -) 650 mg PO Q6H [facility] Last Admin: 10/10/18 05:28 Dose: 650 mg Heparin Sodium (Porcine) (Heparin -) 5,000 unit SQ TID [facility] Last Admin: 10/10/18 05:28 Dose: 5,000 unit Lactated Ringer's (Lactated Ringers Solution) 1,000 mls @ 100 mls/hr IV ASDIR [facility] Last Admin: 10/09/18 19:56 Dose: Not Given Ibuprofen (Motrin -) 600 mg PO Q6H [facility] Last Admin: 10/10/18 10:17 Dose: 600 mg Ondansetron HCl (Zofran Injection) 4 mg IVPUSH Q6H PRN PRN Reason: NAUSEA - Objective Vital Signs: Vital Signs Temperature 98.8 F 10/10/18 09:00 Pulse Rate 58 L 10/10/18 09:00 Respiratory Rate 18 10/10/18 09:00 Blood Pressure 129/61 10/10/18 09:00 O2 Sat by Pulse Oximetry (%) 98 10/10/18 09:00 Constitutional: Yes: Well Nourished, No Distress, Calm Eyes: Yes: Conjunctiva Clear, EOM Intact HENT: Yes: Atraumatic, Normocephalic Gastrointestinal: Yes: Soft, Distention (mild), Tenderness (mild RUQ, RLQ, incisional - no R/G) Extremities: No: Cool, Cyanosis Integumentary: Yes: Incision (x4 dressed). No: Jaundice, Rash Wound/Incision: Yes: Steri Strips (under dressings), Dressing Dry and Intact (x4 ). No: Dressing Removed Neurological: Yes: Alert, Oriented Labs: no new labs Problem List - Problems (1) Calculus of gallbladder with chronic cholecystitis without obstruction Assessment/Plan: POD1 s/p laparoscopic possible open cholycestectomy with umbilical hernia repair doing well pain controlled with po OTC meds ambulating, nhi diet, voiding, passing gas incisions dressed c/d/i ok for d/c home - instructions in d/c plan to f/u in 2-3 weeks no Rx needed Code(s): K80.10 - CALCULUS OF GALLBLADDER W CHRONIC CHOLECYST W/O OBSTRUCTION (2) Umbilical hernia without mention of obstruction or gangrene Assessment/Plan: repaired primarily at OR Code(s): K42.9 - UMBILICAL HERNIA WITHOUT OBSTRUCTION OR GANGRENE Qualifiers: Obstruction and gangrene presence: without obstruction or gangrene Qualified Code(s): K42.9 - Umbilical hernia without obstruction or gangrene (3) RUQ pain Assessment/Plan: improved Code(s): R10.11 - RIGHT UPPER QUADRANT PAIN (4) Nausea alone Assessment/Plan: improved, nhi diet Code(s): R11.0 - NAUSEA (5) Innocent heart murmur Code(s): R01.0 - BENIGN AND INNOCENT CARDIAC MURMURS
--- NOTE | 2018-10-10 12:46 | DS ---
Physical Exam: SUBJECTIVE: Patient seen and examined this AM. State she is having some soreness , but overall feeling well. States she is passing gas and ambulating to and from the bathroom without difficulty. OBJECTIVE: Vital Signs Period Temp Pulse Resp BP Sys/Lowry Pulse Ox Last 24 Hr 98 F-99.3 F 52-91 11-22 94-135/54-90 97-100 PHYSICAL EXAM GEN: no acute distress HEENT: Normocephalic, atraumatic, no pharyngeal erythema or exudate HEART: regular rate and rhythm, systolic murmur LUNGS: CTA b/l ABDOMEN: Soft, normoactive bowel sounds, Tender in RUQ. laparoscopy incision sites clean and dry without drainage or erythema EXTREMITIES: No peripheral edema, small 1 cm diameter erythematous area on left thigh LABS HOSPITAL COURSE: Date of Admission:10/08/18 Date of Discharge: 10/10/18 HPI on Admission: Seen and examined; patient is a 27 y/o female with a PMH of OCP use presenting to the ER with a CC of crampy moderate to severe abdominal pain; she has acute abdominal pain secondary to gallstones visualized on US. She has known gallstones with biliary colic since at least april of last year; she was seen at [facility] and told she needed GB out but was lost to followup. Pain is worse with food and better with rest but never completely relieved. She is afebrile and hemodynamically stable. She has some nausea but has not yet vomited. Denies diarrhea. Prelim US shows 5mm robb with no pericholecystic fluid and normal common bile duct. Discussed the case with Dr. Robles who will see the patient. Will hold off on HIDA until sgy assesses and give fluids, working to control her pain and nausea. As no real white count, persay, and no fever will hold off on abx for now. Hospital Course: Pt was seen by surgery who recommended elective lap cholecystectomy. Patient agreed and surgery was performed without complication. Pt tolerated low fat diet post-op, was passing flatus and ambulating well. She was deemed medically safe for discharge with follow up in the [facility] and with surgery in the office. She was instructed to alternate tylenol and motrin for pain control as needed. Minutes to complete discharge: 35 Discharge Summary Reason For Visit: SYMPTOMATIC CHOLELITHIASIS Current Active Problems Innocent heart murmur (Chronic) Umbilical hernia without mention of obstruction or gangrene (Chronic) Condition: Improved - Instructions Diet, Activity, Other Instructions: Postoperative instructions: You had a laparoscopic cholecystectomy with umbilical hernia repair on 10/09/[address] Sebas Robles of [facility]. Activity: Resume your usual activities gradually, but no heavy exertion or lifting more than 10-15 pounds for 1 month. Remove dressings 48 hours after surgery; sticky tapes underneath will fall off by themselves. You may shower daily starting then, just pat the incision areas dry. No bath or swimming until skin incisions have healed. Eat lightly at first, but advance to your usual diet as tolerated. Pain: For pain, you may use and alternate Tylenol (acetaminophen) 1-2 pills and/ or ibuprofen 200 mg (1-3 pills) every 6 hours each as needed; this means that you can take one OR the other at 3-hour intervals. Do not take more than 4000mg of acetaminophen in a day. Take medications as prescribed or indicated on the labeling. Follow-up: Call Dr. Robles's office at [phone] to make your postop appointment (Tuesday in approximately 2 weeks after surgery). Clinic is held in the Diagnostic Center on the first floor of [facility]. You should follow up with your primary care physician within 1 week of discharge from the hospital. The information for the [facility] clinic has been included in case you do not have a primary care physician. Call the office if you have: * increasing pain not responsive to pain medication * fever of 101F or higher * vomiting * unusual or increasing bleeding or drainage from wounds * increasing redness or swelling at wound sites Also, see your primary medical doctor within 1-2 weeks, or call for an appointment with one you have been referred to. Referrals: Sebas Robles MD [Staff Physician] - Gonzalo Henry MD [Staff Physician] - Disposition: HOME - Home Medications Comprehensive Discharge Medication List: Ambulatory Orders Norethindrone AC-Eth Estradiol [Junel 1 mg-20 Mcg Tablet] 1 each PO DAILY Acetaminophen [Tylenol] 325 mg PO Q6H PRN #30 capsule MDD 4g 10/10/18 Ibuprofen [Motrin Ib] 200 mg PO Q6H PRN 14 Days tablet 10/10/18 This patient is new to me today: No Emergency Visit: Yes ED Registration Date: 10/08/18 Care time: The patient presented to the Emergency Department on the above date and was hospitalized for further evaluation of their emergent condition. Critical Care patient: No - Discharge Referral Referred to [facility] No
[2018-10-10 15:15] VITALS: BP 118/70; PULSE 56; TEMP 98.2
--- NOTE | 2018-10-10 18:37 | PN ---
Teaching Attending Note Name of Resident: Gonzalo Weston ATTENDING PHYSICIAN STATEMENT I saw and evaluated the patient. I reviewed the resident's note and discussed the case with the resident. I agree with the resident's findings and plan as documented. SUBJECTIVE: No fever or chills. minimal abd pain at site of incision OBJECTIVE: NAD, AAOx3. pleasant CV: RRR, 3/6 SM mainly heard at apex. Lungs: CTAB Abd: soft, ND, TTP in all quadrants . surgical site wounds dressing Ext : no edema or erythema Assessment/Plan: 27 y/o lady with h/o preeclampsia, heart murmur, and known gall stones and biliary colic who presented with RUQ abd pain. 1- RUQ pain. biliarry colic and possible acute cholecystitis . s/p CCY - dc home with surgical f/u . no need for ABx pain control with iburofen and tylenol 2- Heart murmur : known . F/U as out pt Dc home
--- NOTE | 2018-10-11 14:12 | PATH ---
Surgical Pathology Report Patient Name: TANNER GUPTA Med. Rec. #: [id number] /Age/Gender: 1990 (Age: 27) / F Account: [id number] Location: [facility] MED/SURG Taken: 10/09/2018 Received: 10/10/2018 Reported: 10/11/2018 Physicians: Sebas Robles M.D. PHYSICIAN EMERGENCY DEPT Specimen(s) Received GALLBLADDER Clinical History Symptomatic cholelithiasis, umbilical hernia with chronic cholecystitis Final Diagnosis GALLBLADDER, LAPAROSCOPIC CHOLECYSTECTOMY: ACUTE AND CHRONIC CHOLECYSTITIS, CHOLELITHIASIS, AND CHOLESTEROLOSIS. ONE BENIGN PERIDUCTAL LYMPH NODE (0/1). Electronically Signed Delma Cha M.D. Gross Description Received in formalin, labeled "gallbladder," is a 8.3 x 3.0 x 2.8 cm. gallbladder with a 0.2 cm. in length portion of cystic duct attached. A small periductal lymph node measuring 0.7 cm in greatest dimension is identified. The outer surface is pacheco-hernandez and varies from smooth to shaggy. The lumen contains green, tenacious bile as well as a 1.4 cm in greatest dimension yellow, spherical, bosselated cholelith. The mucosa is dark green with gold cholesterol stippling. The wall of the gallbladder measures 0.1 cm. in thickness. Tinsmith Apprentice sections are submitted in one cassette. 10/10/201810/10/2018
--- NOTE | 2018-10-18 23:37 | OP ---
DATE OF OPERATION: 10/09/2018 PREOPERATIVE DIAGNOSIS: Chronic cholecystitis, symptomatic cholelithiasis and umbilical hernia. POSTOPERATIVE DIAGNOSIS: Chronic cholecystitis, symptomatic cholelithiasis and umbilical hernia. PROCEDURE: Laparoscopic cholecystectomy with primary umbilical hernia repair. SURGEON: Sebas Robles M.D. CURRICULUM DEVELOPMENT MANAGER: Aníbal Mansfield M.D. ANESTHESIA: General endotracheal and local 20 mL of 0.5% Marcaine. ESTIMATED BLOOD LOSS: 5 mL FLUIDS: 1 L of crystalloid SPECIMEN: Gallbladder to pathology. FINDINGS: Just under 1 cm gap in the fascia at the umbilicus, with preperitoneal fat only underlying it, was used for the Sheila port and closed on the way out; minimal filmy adhesions over the base of the gallbladder; 2 stones palpable in the gallbladder after removal; duct and artery were clearly identified. DISPOSITION: Stable and extubated to PACU. INDICATION FOR PROCEDURE: Patient is a 27-year-old female with history of nephrolithiasis, innocent heart murmur and preeclampsia with her first , status post 2 C-sections as well as cystoscopy with lithotripsy, who had been diagnosed with cholelithiasis in April of 2018 and had been unable as of yet to arrange a date for laparoscopic cholecystectomy with the surgeon at an outside hospital. She had been following a low fat diet, but was having increasing severity and frequency of attacks of biliary colic, and presented to the emergency room with significant pain. In the emergency room, she had a white count of 10.7 with normal LFTs and lipase , and ultrasound showed multiple gallstones measuring up to 1.6 cm, with possible areas of wall thickening and no pericholecystic fluid and a normal duct. She was admitted to medicine, made n.p.o., and kept on IV fluids and evaluated by surgery. She was also noted on physical examination to have a small umbilical hernia. Risks, benefits, and alternatives of laparoscopic possible open cholecystectomy with possible umbilical hernia repair were discussed with the patient, including but not limited to bleeding, infection, injury to adjacent structures, bile leak or ductal injury, intraabdominal abscess, incisional or recurrent hernia, need for further procedures and . Alternatives of delayed or no surgery with risks of recurrence of biliary colic, cholecystitis, pancreatitis, cholangitis and their sequelae were also discussed. Patient desired to proceed with the operation, signed informed consent for the same and is now brought to the OR for this procedure. OPERATIVE TECHNIQUE: The patient was brought to the operating room and laid supine on the operating table. Sequential compression devices were applied to bilateral lower extremities, and appropriate antibiotics were given in the OR immediately prior to the case. After induction and intubation by anesthesia, the patient's abdomen was prepped and draped in sterile fashion. A small supraumbilical midline incision was made with a scalpel and carried into subcutaneous tissues with electrocautery, until the abdominal wall fascia was identified. There was noted to be a small gap in the fascia at the umbilicus, just under 1 cm long, which appeared to have only preperitoneal fat underlying it, and the peritoneum itself was entered bluntly and checked inside with a fingertip, to ensure the absence of any underlying adhesions. The umbilical hernia was then used for the Sheila port, after a stay suture of 0 Vicryl in [id number] fashion was placed in the fascia, for closure on the way out. The Sheila trocar was then introduced directly into the abdominal cavity and secured in place with the balloon. The abdomen was insufflated with carbon dioxide. The patient was placed in reverse Trendelenburg position, and the laparoscope was inserted to inspect the abdominal cavity. The gallbladder was visible over the edge of the liver. An additional 5-mm port was placed in the subxiphoid area under direct vision, as well as 2 in the right upper quadrant. A grasper was introduced through the right-sided port to grasp the fundus of the gallbladder and elevate it over the edge of the liver. There were some minimal filmy adhesions noted over the base of the gallbladder. A 2nd grasper was used to grasp the infundibulum of the gallbladder and retract it laterally, and a [place] dissector used in the operative port to carefully and bluntly take down some of these filmy adhesions, and begin dissecting the fat at the base of the gallbladder to identify the cystic structures. This was accomplished carefully with the cystic duct ultimately being identified first, and the cystic artery just medial to it also being clearly identified. These were the only 2 structures visible entering onto the gallbladder, and they were serially clipped, 2 proximally and 1 distally, and divided with endo- scissors between the clips. Once this had been accomplished, the hook cautery was used to take the gallbladder off the liver bed. Once it had been completely , it was placed in an EndoCatch bag and retrieved out the umbilical port site. There were 2 marble-sized stones palpable in it after removal. It was passed off for a pathology specimen, and the Sheila trocar and pneumoperitoneum were reestablished. The camera was then reinserted to reinspect the abdominal cavity for hemostasis. There was no active bleeding noted in the liver bed or anywhere else, and there had been no spillage of bile, thus no suction or irrigation was actually required. The ports were removed under direct vision. The Sheila trocar and camera were also removed. The stay suture at the umbilicus was tied to close the fascial defect there, effectively closing her umbilical hernia as well. Hemostasis was achieved in the port sites with electrocautery where needed, and local anesthetic was infiltrated into all the sites. Skin was closed with 4-0 Vicryl subcuticular sutures, including a running at the umbilicus. Benzoin and Steri-Strips were applied to each incision, and dressings of gauze and Tegaderm placed over these. Counts were correct at the end of the case. The patient was then awakened and extubated by anesthesia, moved back to a stretcher, and taken to the recovery room in stable condition having tolerated the procedure well. Dr. Mansfield was an essential insurance administrative assistant throughout the case, from assisting with entry in the abdominal cavity, to grasping and manipulation of the gallbladder throughout the case, as well as helping with skin closure at the end. Sebas Robles M.D. [id number]
== END 2018-10-10 18:45 | disposition home or self-care (01) | DRG 419 ==
LOC: JER 22:24 → JERBED 10-08 04:57 → OBSVTOIN 10-08 06:33 → J8W 10-08 09:49
PROVIDERS: ADMIT Internal Medicine; ATTEND Internal Medicine
PROC: 0FT44ZZ Resection of Gallbladder, Percutaneous Endoscopic Approach (ICD-10-PCS; principal; 2018-10-09 12:30)
PROC: 0WQF4ZZ Repair Abdominal Wall, Percutaneous Endoscopic Approach (ICD-10-PCS; 2018-10-09 12:30)
DX: K80.10 Calculus of gallbladder with chronic cholecystitis without obstruction (principal); R10.11 Right upper quadrant pain; E66.3 Overweight; Z68.27 Body mass index [BMI] 27.0-27.9, adult; R01.1 Cardiac murmur, unspecified; N20.0 Calculus of kidney; K42.9 Umbilical hernia without obstruction or gangrene; R11.0 Nausea; R01.0 Benign and innocent cardiac murmurs
CPT/HCPCS: 36415; 76705-TC; 80048; 80053; 81003; 83690; 84443; 84703; 85025; 85610; 85730; 86850; 86900; 86901; 88304-TC; 93005; 93010; 94760; 99283-25; G0378; J0131; J1644

== ENCOUNTER 2019-05-10 10:37 | Emergency (ER) | payer OTHER, BC ==
[2019-05-10 10:49] VITALS: BP 130/67; PULSE 73; TEMP 98.6; BMI 27.9
[2019-05-10] MEDS ORDERED: FLUORESCEIN NA 1 EA STRIP ONE (11:11)
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
== END 2019-05-10 13:13 | disposition home or self-care (01) ==
LOC: JERFT 10:37
DX: S05.92XA Unspecified injury of left eye and orbit, initial encounter (principal); Y04.2XXA Assault by strike against or bumped into by another person, initial encounter; Y93.89 Activity, other specified; Y92.89 Other specified places as the place of occurrence of the external cause; Y99.0 Civilian activity done for income or pay
CPT/HCPCS: 70486-TC; 99281-25

== ENCOUNTER 2019-07-25 18:27 | Emergency (ER) | payer BC, OTHER ==
--- NOTE | 2019-07-25 18:47 | PDOC ---
Rapid Medical Evaluation Time Seen by Provider: 07/25/19 18:44 Medical Evaluation: Allergies Allergy/AdvReac Type Severity Reaction Status Date / Time No Known Allergies Allergy Verified 05/10/19 10:44 07/25/19 18:45 I have performed a brief in-person evaluation of this patient. The patient presents with a chief complaint of: vag spotting/bleeding since tuesday, +SOB, LMP earlier this month Pertinent physical exam findings: well appearing, pt refused to get off phone in triage stating "i'm calling out of work right now" I have ordered the following: labs, T&S The patient will proceed to the ED for further evaluation. Discharge Disposition - Diagnosis Vaginal bleeding - Referrals - Patient Instructions - Post Discharge Activity
[2019-07-25 18:56] VITALS: TEMP 98.6; BMI 29.0
[2019-07-25 20:29] LABS: EPI CELLS 10.4 /HPF (0-5/HPF); HYALINE CASTS 4 /lpf (0-8); PH,URINE 7.5 (5.0-8.0); URINE APPEARANCE CLEAR; URINE BACTERIA 219.7 /hpf (NEGATIVE); URINE BILIRUBIN NEGATIVE (NEGATIVE); URINE COLOR YELLOW; URINE GLUCOSE (UA) NEGATIVE (NEGATIVE); URINE KETONE TRACE (NEGATIVE); URINE LEUK ESTERASE NEGATIVE (NEGATIVE); URINE NITRITE NEGATIVE (NEGATIVE); URINE PROTEIN NEGATIVE (NEGATIVE); URINE RBC 3 /hpf (0-4); URINE WBC 4 /hpf (0-5)
[2019-07-25 20:32] LABS: BASO % 0.4 % (0-2.0); EOS % 1.2 % (0-4.5); HEMATOCRIT 39.7 % (32.4-45.2); HEMOGLOBIN 13.1 GM/dL (10.7-15.3); LYMPH % 31.2 % (8-40); MCH 28.4 pg (25.7-33.7); MCHC 32.9 g/dl (32.0-36.0); MEAN CELL VOLUME 86.3 fl (80-96); MEAN PLT VOLUME 10.1 fl (7.5-11.1); MONO % 7.2 % (3.8-10.2); PLATELET COUNT 215 K/MM3 (134-434); RBC 4.61 M/mm3 (3.60-5.2); RDW 12.7 % (11.6-15.6); WHITE BLOOD COUNT 6.7 K/mm3 (4.0-10.0)
[2019-07-25 20:43] LABS: INR 0.95 (0.83-1.09); PROTHROMBIN TIME (PATIENT) 11.2 SEC (9.7-13.0)
[2019-07-25 20:46] LABS: ACTIVATED PTT 30.1 SECONDS (25.2-36.5)
[2019-07-25 20:57] LABS: ALBUMIN 3.6 g/dl (3.4-5.0); BILIRUBIN,TOTAL 0.3 mg/dL (0.2-1); BLOOD UREA NITROGEN 11.9 mg/dL (7-18); CALCIUM 8.9 mg/dL (8.5-10.1); CREATININE 0.9 mg/dL (0.55-1.3); POTASSIUM 4.6 mmol/L (3.5-5.1); TOT PROT 7.5 g/dl (6.4-8.2)
--- NOTE | 2019-07-25 21:31 | PDOC ---
History of Present Illness - General Chief Complaint: Vaginal Bleeding Stated Complaint: VAGINAL BLEEDING/ABD PAIN/ LT SIDE PAIN Time Seen by Provider: 07/25/19 18:44 History Source: Patient Exam Limitations: No Limitations Past History - Travel Traveled outside of the country in the last 30 days: No Close contact w/someone who was outside of country & ill: No - Past Medical History Allergies/Adverse Reactions: Allergies Allergy/AdvReac Type Severity Reaction Status Date / Time No Known Allergies Allergy Verified 05/10/19 10:44 Home Medications: Ambulatory Orders Norethindrone AC-Eth Estradiol [Junel 1 mg-20 Mcg Tablet] 1 each PO DAILY Acetaminophen [Tylenol] 325 mg PO Q6H PRN #30 capsule MDD 4g 10/10/18 Ibuprofen [Motrin Ib] 200 mg PO Q6H PRN 14 Days tablet 10/10/18 COPD: No Disorders: Yes (renal colic) - Surgical History Cholecystectomy: Yes - Immunization History Immunization Up to Date: Yes - Psycho Social/Smoking Cessation Hx Smoking History: Current some day smoker Have you smoked in the past 12 months: No Number of Cigarettes Smoked Daily: 2 Information on smoking cessation initiated: No Hx Alcohol Use: Yes Drug/Substance Use Hx: No Substance Use Type: None Hx Substance Use Treatment: No Review of Systems - Review of Systems Able to Perform ROS?: Yes Comments:: 07/26/19 01:45 CONSTITUTIONAL: Absent: fever, chills, diaphoresis, generalized weakness, malaise, loss of appetite HEENT: Absent: rhinorrhea, nasal congestion, throat pain, throat swelling, difficulty swallowing, mouth swelling, ear pain, eye pain, visual Changes CARDIOVASCULAR: Absent: chest pain, loss of consciousness, palpitations, irregular heart rate, peripheral edema RESPIRATORY: Absent: cough, shortness of breath, dyspnea with exertion, orthopnea, wheezing, stridor, hemoptysis GASTROINTESTINAL: Present: Abdominal pain absent: abdominal distension, nausea, vomiting, diarrhea, constipation, melena, hematochezia GENITOURINARY: Present: Vaginal bleed absent: dysuria, frequency, urgency, hesitancy, hematuria , flank pain, genital pain MUSCULOSKELETAL: Absent: myalgia, arthralgia, joint swelling SKIN: Absent: rash, itching, pallor HEMATOLOGIC/IMMUNOLOGIC: Absent: easy bleeding, easy bruising, lymphadenopathy, frequent infections ENDOCRINE: Absent: unexplained weight gain, unexplained weight loss, heat intolerance, cold intolerance NEUROLOGIC: Absent: headache, focal weakness or paresthesias, dizziness, unsteady gait, seizure, mental status changes, bladder or bowel incontinence PSYCHIATRIC: Absent: anxiety, depression, suicidal or homicidal ideation, hallucinations. Is the patient limited Malagasy proficient: No *Physical Exam - Vital Signs Last Vital Signs Temp Pulse Resp BP Pulse Ox 98.6 F 79 20 130/81 99 07/25/19 18:45 07/25/19 18:45 07/25/19 18:45 07/25/19 18:45 07/25/19 18:45 - Physical Exam 07/26/19 01:45 GENERAL: Well developed, well nourished. Awake and alert. No acute distress. HEENT: Normocephalic, atraumatic. PERRLA, EOMI. No conjunctival pallor. Sclera are non- icteric. Moist mucous membranes. NECK: Supple. Full ROM. CARDIOVASCULAR: Regular rate and rhythm. No murmurs, rubs, or gallops. Distal pulses are 2+ and symmetric. PULMONARY: No evidence of respiratory distress. Lungs clear to auscultation bilaterally. No wheezing, rales or rhonchi. ABDOMINAL: Soft. Non-tender. Non-distended. No rebound or guarding. No organomegaly. Normoactive bowel sounds. Pelvic: External genitalia normal without lesions. Vaginal vault is clear. Scant bright red blood coming from the cervix. Cervix is long and closed. No cervical motion tenderness. Uterus is nontender and normal in size. Adnexa with TTP of the R side. N no masses felt. MUSCULOSKELETAL Normal range of motion at all joints. No bony deformities or tenderness. No CVA tenderness. EXTREMITIES: No cyanosis. No clubbing. No edema. No calf tenderness. SKIN: Warm and dry. Normal capillary refill. No rashes. No jaundice. NEUROLOGICAL: Alert, awake, appropriate. Cranial nerves 2-12 intact. No deficits to light touch and temperature in face, upper extremities and lower extremities. No motor deficits in the in face, upper extremities and lower extremities. Normoreflexic in the upper and lower extremities. Normal speech. Toes are down- going bilaterally. Gait is normal without ataxia. PSYCHIATRIC: Cooperative. Good eye contact. Appropriate mood and affect. ED Treatment Course - LABORATORY CBC & Chemistry Diagram: 07/25/19 19:05 07/25/19 19:05 - ADDITIONAL ORDERS Additional order review: Laboratory Results 07/25/19 07/25/19 07/25/19 19:05 19:05 18:45 PT with INR 11.20 INR 0.95 PTT (Actin FS) 30.1 Sodium 141 Potassium 4.6 Chloride 108 H Carbon Dioxide 27 Anion Gap 5 L BUN 11.9 Creatinine 0.9 Est GFR (CKD-EPI)AfAm 100.85 Est GFR (CKD-EPI)NonAf 87.01 Random Glucose 86 Calcium 8.9 Total Bilirubin 0.3 AST 17 ALT 27 Alkaline Phosphatase 55 Total Protein 7.5 Albumin 3.6 Urine Color Yellow Urine Appearance Clear Urine pH 7.5 Ur Specific Edroy 1.024 Urine Protein Negative Urine Glucose (UA) Negative Urine Ketones Trace H Urine Blood 1+ H Urine Nitrite Negative Urine Bilirubin Negative Urine Urobilinogen 1.0 Ur Leukocyte Esterase Negative Urine WBC (Auto) 4 Urine RBC (Auto) 3 Urine Casts (Auto) 4 U Epithel Cells (Auto) 10.4 Urine Bacteria (Auto) 219.7 Urine HCG, Qual 07/25/19 18:45 PT with INR INR PTT (Actin FS) Sodium Potassium Chloride Carbon Dioxide Anion Gap BUN Creatinine Est GFR (CKD-EPI)AfAm Est GFR (CKD-EPI)NonAf Random Glucose Calcium Total Bilirubin AST ALT Alkaline Phosphatase Total Protein Albumin Urine Color Urine Appearance Urine pH Ur Specific Edroy Urine Protein Urine Glucose (UA) Urine Ketones Urine Blood Urine Nitrite Urine Bilirubin Urine Urobilinogen Ur Leukocyte Esterase Urine WBC (Auto) Urine RBC (Auto) Urine Casts (Auto) U Epithel Cells (Auto) Urine Bacteria (Auto) Urine HCG, Qual Negative 07/25/19 19:05 RBC 4.61 MCV 86.3 MCHC 32.9 RDW 12.7 MPV 10.1 Neutrophils % 60.0 Lymphocytes % 31.2 D Monocytes % 7.2 Eosinophils % 1.2 Basophils % 0.4 Medical Decision Making - Medical Decision Making 07/26/19 01:51 Patient is a 28-year-old female no past medical history who presents to the ER today for vaginal bleeding. She states that she has been having dysfunctional bleeding. She has been on control for 3 years, the same pill, and has not not had this issue before. She states that she had her period on July 12. She states that she started bleeding again yesterday. She is concerned as this never happened before. She also notes she has some right-sided abdominal pain. Denies nausea, vomiting and urinary symptoms. A/P: Dysfunctional uterine bleeding, abdominal pain See exam findings. Transvaginal ultrasound shows no cysts. CTAP ordered to rule out appendicitis given right lower quadrant pain. Lab work is grossly unremarkable. UA is negative for infection. 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 I answered all of the patient's questions. The patient was satisfied with the care received and felt comfortable with the discharge plan and treatment plan. The Patient agrees to follow up with the primary care physician/specialist within 24-72 hours. Return precautions were given. Discharge - Discharge Information Problems reviewed: Yes Clinical Impression/Diagnosis: Vaginal bleeding Condition: Stable Disposition: HOME - Admission No - Follow up/Referral - Patient Discharge Instructions Patient Printed Discharge Instructions: DI for Vaginal Bleeding Additional Instructions: You were evaluated for your vaginal bleeding today. Your blood work, ultrasound and CAT scan were all normal. Please follow-up with your [facility] REPAIRER. You may need to readjust her control pills Follow-up with them this week. Return to the ER for worsening pain, soaking through more than 1 menstrual pad per hour, or if you have any changes in her symptoms. - Post Discharge Activity Work/Back to School Note: Back to Work
[2019-07-25 23:41] VITALS: BP 114/67; PULSE 60
== END 2019-07-26 02:40 | disposition home or self-care (01) ==
LOC: JER 18:27
DX: N93.9 Abnormal uterine and vaginal bleeding, unspecified (principal)
CPT/HCPCS: 36415; 74177-TC; 76830-TC; 80053; 81003; 84703; 85025; 85610; 85730; 87086; 99285-25; Q9967